=== PATIENT | female | born 1970 ===

== ENCOUNTER → 2024-11-11 | Outpatient (CLI) | payer OTHER ==
[2024-11-14 13:35] LABS: O-DESMETHYLTRAMADOL,URN, QUANT 3743 ng/mL; TRAMADOL, URN, QUANT >10000 ng/mL
== END ==
LOC: LAB 10:41 → LAB SHORT 10:41
PROVIDERS: Physician Assistant
DX: Z51.81 Encounter for therapeutic drug level monitoring (principal); Z79.899 Other long term (current) drug therapy
CPT/HCPCS: G0480